=== PATIENT | male | born 1995 | race African-American/Black ===

== ENCOUNTER 2018-08-03 10:59 | Emergency (ER) | payer OTHER ==
[~2018-08-03] VITALS: Ht 180.3 cm; Wt 81.6 kg
== END 2018-08-03 13:33 | disposition home or self-care (01) ==
LOC: EDSEX 10:59 → ER 10:59
DX: J11.1 Influenza due to unidentified influenza virus with other respiratory manifestations (principal)

== ENCOUNTER 2022-03-09 07:34 | Emergency (ER) | payer OTHER ==
[~2022-03-09] VITALS: Ht 175.3 cm; Wt 92.1 kg
== END 2022-03-09 13:07 | disposition home or self-care (01) ==
LOC: ER 07:34
DX: B34.9 Viral infection, unspecified (principal); Z20.822 Contact with and (suspected) exposure to COVID-19